=== PATIENT | female | born 1940 | race Caucasian/White ===

== ENCOUNTER → 2020-09-24 14:18 | Outpatient (CLI) | payer OTHER, SELFPAY ==
--- NOTE | ~2020-09-24 | XR_ITS ---
EXAMINATION: XR knee RT 3V DATE: 09/24/2020 14:49 INDICATION: Right knee osteoarthritis. TECHNIQUE: 3 views of right knee on 4 radiographs were obtained. COMPARISON: None. FINDINGS: Bone alignment is normal. No fracture. There is mild tricompartmental osteoarthritis. No kn ee joint effusion. IMPRESSION: 1. Mild right knee osteoarthritis. Reviewed, dictated and finalized at location A.
== END ==
PROVIDERS: Visit Provider Internal Medicine
DX: M17.0 Bilateral primary osteoarthritis of knee (principal)
CPT/HCPCS: 73562

== ENCOUNTER 2020-12-18 11:00 | Outpatient (RCR) | payer OTHER, SELFPAY ==
--- NOTE | 2020-11-27 10:23 | PTOPEVAL ---
PHYSICAL THERAPY EVALUATION AND PLAN OF CARE 11-27-20 Thank you for referring Michelle Colon to [facility] for the diagnosis of R knee OA. Michelle is scheduled to be seen for therapy? 1 x/week for 3 weeks. Please review, sign, date and return this plan of care MEIR. I agree with and certify that the following plan of care is medically necessary. Referring Physician Date Attending Provider: Mehdi Yeh MD *PT Outpatient Evaluation Document 11/27/20 09:05 BRE (Rec: 11/27/20 10:05 BRE [id number]) Past Medical History Source of Past Medical History Patient Neurological History Hx Neurological Disorders No Significant History Cardiovascular History Hx Hypertension Yes: meds Respiratory History Hx Respiratory Disorders No Significant History Gastrointestinal History Hx Gastrointestinal Disorders No Significant History Genitourinary History Hx Genitourinary Disorders No Significant History Musculoskeletal History Hx Arthritis Yes: R knee OA; Oshea's cyst Hx Other Musculoskeletal Disorders Yes: overall body aches- hips, back Endocrine History Hx Endocrine Disorders No Significant History Other History Hx Other Medical Conditions Yes: had COVID vaccine; Evaluation Information Problem Diagnosis R knee OA Onset September 2020 Subjective Information gradual increase in knee pain, Query Text:As Reported By Patient/ no recent injury or trauma to Family knee; cortisone shot recently - helped with pain relief about one week; is not doing any exercises for knee; also have Oshea's cyst on the knee, dr may have to drain it if continues to cause pain; Diagnostic Tests X-Rays For This Problem Yes: mild tricompartmental OA Previous Treatments Previous Treatments For This Problem no PT for knee, have had PT in past for back pain Prior Level of Function Activity Level (Last 3 Months) Occupation retired Activity of Daily Living Ability Independent Indoor/Home Mobility Independent Community Mobility Independent Stairs Ability Independent Functional Cognition (Planning, Shopping Independent , Taking Medications) Cooking Yes Cleaning Yes Laundry Yes Shopping Yes Driving Yes Home Setting Home Type Multiple Levels Environmental Barriers Stairs, Greater than 4 Living Situation With Adult Child,With Spouse Mobility Assistive Devic
--- NOTE | 2020-12-18 11:48 | PTOPEVAL ---
PHYSICAL THERAPY DISCHARGE 12-18-20 Refer to the clinical summary below for her status. The goals were partially achieved. Discharge at this time. Thank you for referring Michelle Colon to [facility] Please review, sign, date and return this discharge summary MEIR. I agree with and certify that the following plan of care is medically necessary. Referring Physician Date Attending Provider: Mehdi Yeh MD Document 12/18/20 11:10 BRE (Rec: 12/18/20 11:48 BRE [email or web address]) Assessment Status Discharge Subjective Information Michelle reports: doing all Query Text:As Reported By Patient/ exercises at home and doing OK Family with them; have more confident with walking and going without the cane; feel like ready to be done with therapy and keep doing exercises at home; Pain Assessment Timing of Pain Assessment Timing of Pain Assessment Assessment Self Report Self Report Pain Level 0 Pain Score Pain Score 0: Self Report Additional Pain Score Comments have numbness and tingling in both legs and feet; knee is stiff but not painful; Lower Extremity Range of Motion General Lower Extremity Range of Motion Gross Lower Extremity Range of Motion R hamstring length with supine Comments SLR: R 55'; Lower Extremity Muscle Strength Testing General Lower Extremity Strength Gross Lower Extremity Strength functional strength testing: -single leg standing 3 seconds , unstable; - standing with 1 UE support: hip abduction x 20 reps; hip flexion x 12 reps; - supine SLR x 15 reps; bridge x 20 reps; side lying hip abduction x 15 reps; verbal review of HEP, stated some problems getting theraband on/off her legs in standing; discussed sit in kitchen chair, put band around ankles, then walk to counter top to hold on with UE for exercises; pt voiced concern about falling with the band around her ankles, discussed to do without the band, and increase reps as able to 20 reps; Gait Assessment Gait Assessment Ambulation Assistive Devices None Ambulat
== END 2020-12-18 13:38 | disposition home or self-care (01) ==
LOC: ANHPT 11:00
PROVIDERS: PCP Internal Medicine; Visit Provider Orthopaedic Surgery
DX: M17.11 Unilateral primary osteoarthritis, right knee (principal)
CPT/HCPCS: 97110; 97161

== ENCOUNTER 2021-04-03 00:31 | Day surgery (SDC) | payer OTHER, SELFPAY ==
[2021-03-21 14:32] VITALS: BMI 27.3
--- NOTE | 2021-04-03 07:26 | PM.HPGS ---
History of Present Illness History of Present Illness Consent: Risks, benefits, and alternatives have been discussed and questions answered. Patient agrees to proceed with procedure. Chief complaint: hx of colon polyps Narrative: Michelle Colon is a 80 year old female here for colon cancer screening. She has a history of polyps Review of Systems Review of Systems: All systems reviewed & are unremarkable except as noted in HPI and below PMFSH Past Medical History Medical History Arthritis of right knee Surgical History Surgical History History of appendectomy History of hysterectomy Family History Family History Mother Patient's mother is Family history of diabetes mellitus in first degree relative Family history of congestive heart failure Family history of Parkinson's disease Father Patient's father is Family history of lung cancer Social History Social History Smoking status: Never smoker Second hand tobacco smoke exposure: No Alcohol intake: current Drinks per week: 14 Substance use: never Living arrangements: with family Spiritual care concerns: No Meds Home Medications and Allergies Home Medications Medication Instructions Recorded Confirmed Type aspirin 81 mg tablet,delayed 81 mg PO DAILY 08/23/19 04/03/21 History release multivitamin 1 tablet PO DAILY 08/23/19 04/03/21 History diltiazem HCl 120 mg 120 mg PO DAILY #90 cap 01/21/21 04/03/21 Rx capsule,extended release 24 hr propranolol 40 mg tablet 40 mg PO Q12H #90 tablet 01/29/21 04/03/21 Rx losartan 100 mg tablet 100 mg PO DAILY #90 tablet 02/22/21 04/03/21 Rx hydrochlorothiazide 25 mg PO DAILY 03/21/21 04/03/21 History pravastatin 40 mg PO DAILY 03/21/21 04/03/21 History venlafaxine 37.5 mg 37.5 mg PO DAILY #90 cap 03/27/21 04/03/21 Rx capsule,extended release 24 hr Allergies Allergy/AdvReac Type Severity Reaction Status Date / Time lisinopril AdvReac Severe Cough Verified 04/03/21 09:00 citalopram AdvReac Intermediate low sodium Verified 04/03/21 09:00 Exam Resp: Auscultation: clear to auscultation bilaterally Cardio: Rate: regular rate Rhythm: regular rhythm GI: GI Palp: Yes Soft to palpation and No Tenderness to palpation present (GI) Assessment and Plan Assessment and plan (1) Colon cancer screening: Code(s): Z12.11 - Encounter for screening for malignant neoplasm of colon Status: Acute Assessment and Plan: Colonoscopy with possible biopsy or polypectomy or cautery or injection of substances.
[2021-04-03 09:01] VITALS: BP 167/98; PULSE 73; RESP 16; TEMP 35.7; O2SAT 98
[2021-04-03] MEDS: LACTATED RINGERS 1,000 ML 150 ML IV CONT (09:06)
--- NOTE | 2021-04-03 09:37 | WPDANESEPPF ---
Anes - Initial Pre Proc Eval Procedure: Operation Date: 04/03/21 10:00 Proposed Procedures p Screening Colonoscopy - Roly Martinez MD Date/Time: 04/03/21 09:37 Surgeon: Roly Martinez MD Pre Op Diagnosis: hx of colon polyps Patient Data Age: 80 Gender: F Height: 1.6 m Weight: 69.8 kg Last Vital Signs Temp 35.7 C L 04/03/21 09:01 Pulse 73 04/03/21 09:01 Resp 16 04/03/21 09:01 BP 167/98 H 04/03/21 09:01 Pulse Ox 98 04/03/21 09:01 Allergies Allergy/AdvReac Type Severity Reaction Status Date / Time lisinopril AdvReac Severe Cough Verified 04/03/21 09:00 citalopram AdvReac Intermediate low sodium Verified 04/03/21 09:00 Home Medications Medication Instructions Recorded Confirmed Type aspirin 81 mg tablet,delayed 81 mg PO DAILY 08/23/19 04/03/21 History release multivitamin 1 tablet PO DAILY 08/23/19 04/03/21 History diltiazem HCl 120 mg 120 mg PO DAILY #90 cap 01/21/21 04/03/21 Rx capsule,extended release 24 hr propranolol 40 mg tablet 40 mg PO Q12H #90 tablet 01/29/21 04/03/21 Rx losartan 100 mg tablet 100 mg PO DAILY #90 tablet 02/22/21 04/03/21 Rx hydrochlorothiazide 25 mg PO DAILY 03/21/21 04/03/21 History pravastatin 40 mg PO DAILY 03/21/21 04/03/21 History venlafaxine 37.5 mg 37.5 mg PO DAILY #90 cap 03/27/21 04/03/21 Rx capsule,extended release 24 hr Patient hx anesthesia problems: none Family hx anesthesia problems: none PMFSH Past Medical History Medical History (Updated 04/03/21 @ 09:38 by Bryan Allan MD) Anxiety and depression Arthritis of right knee 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 Dyslipidemia Essential hypertension Major depressive disorder, single episode, unspecified Mixed hyperlipidemia (06/28/15) Osteoarthritis 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 Uncontrolled hypertension Surgical History Surgical History History of appendectomy History of hysterectomy Family History Family History Mother Patient's mother is Family history of diabetes mellitus in first degree relative Family history of congestive heart failure Family history of Parkinson's disease Father Patient's father is Family history of lung cancer Social History Social History Smoking status: Never smoker Second hand tobacco smoke exposure: No Alcohol intake: current Drinks per week: 14 Substance use: never Living arrangements: with family Spiritual care concerns: No Anes - Eval Final PreProcedure Day of Procedure 04/03/21 09:37 Patient weight: overweight Heart: regular rate and rhythm Lungs: clear to auscultation and normal air movement Airway: Mallampati scale class II Neurological: alert and oriented Last oral intake: >/= 8 hours ASA classification: III Emergent: no Anesthetic plan: proceed Anesthesia type and monitoring: general GIVS Informed Consent: The patient's anesthetic plan and its attendant risks and benefits were discussed with the patient/family/POA. Questions were solicited and answers provided to the satisfaction of the patient/family/POA.
--- NOTE | 2021-04-03 10:05 | SUR.OPER ---
cecal time 1005
[2021-04-03 10:12] VITALS: BP 157/80; PULSE 67; RESP 15; O2SAT 99
[2021-04-03 10:32] VITALS: BP 164/82; PULSE 68; RESP 12; O2SAT 100
[2021-04-03 11:22] VITALS: BP 164/82; PULSE 68; RESP 15; O2SAT 98
== END 2021-04-03 10:40 | disposition home or self-care (01) ==
PROVIDERS: PCP Internal Medicine; Visit Provider Internal Medicine Gastroenterology
PROC: 0DJD8ZZ Inspection of Lower Intestinal Tract, Via Natural or Artificial Opening Endoscopic (ICD-10-PCS; CPT 45378; principal; 2021-04-03 10:00)
DX: Z12.11 Encounter for screening for malignant neoplasm of colon (principal); K57.30 Diverticulosis of large intestine without perforation or abscess without bleeding; Z86.010 Personal history of colon polyps; I12.9 Hypertensive chronic kidney disease with stage 1 through stage 4 chronic kidney disease, or unspecified chronic kidney disease; N18.1 Chronic kidney disease, stage 1; E11.22 Type 2 diabetes mellitus with diabetic chronic kidney disease; F41.8 Other specified anxiety disorders; E78.5 Hyperlipidemia, unspecified; E78.2 Mixed hyperlipidemia; E11.21 Type 2 diabetes mellitus with diabetic nephropathy; Z79.82 Long term (current) use of aspirin
CPT/HCPCS: G0105; J2704; J7120

== ENCOUNTER 2023-05-21 11:34 | Outpatient (CLI) | payer OTHER, SELFPAY ==
[2023-05-21 13:17] LABS: Anion Gap 10 mmol/L (8-16); Blood Urea Nitrogen 24 mg/dL (7-17); Calcium 9.8 mg/dL (8.4-10.2); Carbon Dioxide 25 mmol/L (22-30); Chloride 103 mmol/L (98-107); Estimated Glomerular Filt Rate 43; Glucose 122 mg/dL (65-110); Potassium 5.1 mmol/L (3.4-5.0); Sodium 138 mmol/L (137-145)
== END 2023-05-21 11:35 | disposition home or self-care (01) ==
LOC: ANHLAB 11:36
PROVIDERS: PCP Family Medicine; Visit Provider Family Medicine
DX: E87.5 Hyperkalemia (principal)
CPT/HCPCS: 36415; 80048

== ENCOUNTER 2024-09-05 12:52 | Outpatient (CLI) | payer OTHER, SELFPAY ==
--- NOTE | ~2024-09-05 | US_ITS ---
EXAM: RENAL ULTRASOUND HISTORY: N18.32 - Chronic kidney disease, stage 3b COMPARISON: 04/15/2016 FINDINGS: RIGHT KIDNEY: 8.2 x 4.3 x 4.8 cm. The parenchyma of the right kidney is unremarkable in echogenicity. No hydronephrosis or bulky renal calculi. LEFT KIDNEY: 8.3 x 4.3 x 4.4 cm No hydronephrosis or renal calculi. The parenchyma of the left kidney is unremarkable in echogenicity. BLADDER: Decompressed decompressed, limiting its evaluation IMPRESSION: Unremarkable sonographic evaluation of the bilateral kidneys, as detailed above. Reviewed, dictated and finalized at location A. ERMILK DRIER OPERATOR IMPRESSION: Unremarkable sonographic evaluation of the bilateral kidneys, as detailed above .
== END 2024-09-05 12:53 | disposition home or self-care (01) ==
LOC: MICIMG 12:55
PROVIDERS: PCP Internal Medicine Nephrology; Visit Provider Internal Medicine Nephrology
DX: I12.9 Hypertensive chronic kidney disease with stage 1 through stage 4 chronic kidney disease, or unspecified chronic kidney disease (principal); N18.32 Chronic kidney disease, stage 3b
CPT/HCPCS: 76775